=== PATIENT | male | born 1990 | race Caucasian/White ===

== ENCOUNTER 2019-08-05 13:01 | Emergency (ER) | payer MEDICAID ==
[~2019-08-05] VITALS: Ht 190.5 cm; Wt 88.8 kg
[2019-08-05 13:07] VITALS: BP 128/82
== END 2019-08-05 14:15 | disposition home or self-care (01) ==
LOC: ER 13:01
DX: R05 Cough (principal); J45.909 Unspecified asthma, uncomplicated; R11.0 Nausea
CPT/HCPCS: 99281

== ENCOUNTER 2021-03-24 17:04 | Emergency (ER) | payer MEDICAID ==
[~2021-03-24] VITALS: Ht 190.5 cm; Wt 104.0 kg
[2021-03-24] MEDS ORDERED: ondansetron 4mg rapidly disintigrating tab PO ONE (17:35)
[2021-03-24] MEDS ORDERED: ketorolac tromethamine 15mg/ml inj. IM ONE (17:35)
[2021-03-24 18:11] LABS: ALANINE AMINOTRANSFERASE 93 U/L (12-78); ALBUMIN/GLOBULIN RATIO 1.2 (1.1-1.5); ALKALINE PHOSPHATASE 56 IU/L (46-116); ANION GAP 13 (8-16); ASPARTATE AMINO TRANSFERASE 43 U/L (10-37); BILIRUBIN,TOTAL 0.9 MG/DL (0.1-1.0); BLOOD UREA NITROGEN 20 MG/DL (7-18); BUN/CREATININE RATIO 12.6 (5.4-32.0); CHLORIDE 103 MMOL/L (99-107); CREATININE 1.59 MG/DL (0.60-1.10); GLUCOSE 137 MG/DL (70-104); SODIUM 141 MMOL/L (135-145); TOTAL CARBON DIOXIDE 25.2 MMOL/L (24-32); TOTAL PROTEIN 9.1 G/DL (6.4-8.2); eGFR 51 ML/MIN
[2021-03-24 18:21] LABS: BASOPHILS # (AUTO) 0.1 X10'3 (0-0.2); BASOPHILS % (AUTO) 0.5 % (0-1); EOSINOPHILS % (AUTO) 0 % (0-6); HEMATOCRIT 49.7 % (42.0-52.0); HEMOGLOBIN 16.8 g/dl (14.0-17.9); LYMPHOCYTES # (AUTO) 0.2 X10'3 (1.1-4.8); LYMPHOCYTES % (AUTO) 1.3 % (21-51); MEAN CORPUSCULAR HEMOGLOBIN 31.5 PG (27.0-31.0); MEAN CORPUSCULAR HGB CONC 33.9 g/dL (33.0-36.5); MEAN PLATELET VOLUME 8.5 FL (7.4-10.4); MONOCYTES # (AUTO) 0.9 X10'3 (0-0.9); MONOCYTES % (AUTO) 5.7 % (2-12); NEUTROPHILS # (AUTO) 14.3 X10'3 (1.8-7.7); NEUTROPHILS % (AUTO) 92.5 % (42-75); PLATELET COUNT 271 X10'3 (140-440); RED BLOOD COUNT 5.35 X10'6 (4.70-6.10); RED CELL DISTRIBUTION WIDTH 13.3 % (11.5-14.5); WHITE BLOOD COUNT 15.5 X10'3 (4.5-11.0)
[2021-03-24] MEDS ORDERED: normal saline 1000ml 1,000 ML IV ONE ×2 (19:00→20:40)
[2021-03-24] MEDS ORDERED: metoclopramide 5 mg/ml inj IV ONE (19:00)
[2021-03-24 20:48] VITALS: BP 127/80
[2021-03-24 20:51] LABS: CLARITY,URINE SLIGHTLY CLOUDY (Clear); COLOR,URINE YELLOW (Yellow); GLUCOSE, URINE NEGATIVE (Neg); KETONES,URINE TRACE mg/dl (Neg); LEUKOCYTE ESTERASE ,URINE NEGATIVE (Neg); NITRITES, URINE NEGATIVE (Neg); OCCULT BLOOD,URINE MODERATE (Neg); PROTEIN,URINE 30 mg/dl (Neg); UA COLLECTION TYPE CLN CATCH MIDSTREAM; UROBILINOGEN,URINE 0.2 E.U/dL (0.2-1.0)
[2021-03-24 20:53] LABS: BACTERIA,URINE FEW /HPF (Neg); MUCUS STRANDS MODERATE /LPF (Neg); SQUAMOUS EPITHELIAL CELL,UR FEW /LPF (FEW); WBC,URINE 0-4 /HPF (0-4)
[2021-03-24] MEDS ORDERED: ONDA4TAB6 PO (21:25)
== END 2021-03-24 21:05 | disposition home or self-care (01) ==
LOC: ER 17:06
DX: E86.0 Dehydration (principal); Z20.822 Contact with and (suspected) exposure to COVID-19; R11.2 Nausea with vomiting, unspecified; R50.9 Fever, unspecified; R19.7 Diarrhea, unspecified; J45.909 Unspecified asthma, uncomplicated; Z88.8 Allergy status to other drugs, medicaments and biological substances; Z79.899 Other long term (current) drug therapy
CPT/HCPCS: 36415; 80053; 81001; 85025; 87635; 96361; 96372; 96374; 99284; C9803; J1885; J2765; J7030